=== PATIENT | female | born 1940 | race Caucasian/White ===

== ENCOUNTER 2021-07-23 11:09 | Day surgery (SDCO) | payer MEDICARE ==
[~2021-07-23] VITALS: Ht 170.2 cm; Wt 55.8 kg
[~2021-07-23 11:09] MED LIST: ADULT ASPIRIN R81 MG PO; BENAZEPRIL HCL20 MG PO; CARAFATE1 G1 PO; CLOPIDOGREL75 MG PO; HYDRALAZINE 10M10 MG PO; HYDRALAZINE HCL25 MG PO; LIPITOR40 MG PO; LOPRESSOR50 MG PO; METFORMIN HCL500 MG PO; METOPROLOL TART50 MG PO; NORVASC5 MG PO; PLAVIX75 MG PO; PRILOSEC20 MG PO; SINGULAIR10 MG PO; ZESTRIL5 MG PO
[2021-07-23 11:51] LABS: BASOPHIL 0.4 % (0-2); EOSINOPHIL 11.7 % (0-7); HCT 39.2 % (37.0-47.0); HGB 12.3 g/dl (12.5-16.0); LYMPHOCYTE 8.2 % (15-48); MCH 27.3 pg (25.0-31.0); MCHC 31.4 g/dL (32.0-36.0); MCV 87.1 fL (78.0-100.0); MONOCYTE 8.8 % (0-12); MPV 11.4 fL (6.0-9.5); NEUTROPHIL 70.5 % (41-80); NRBC 0; PLT 378 K/uL (150-400); RDW 13.4 % (11.5-14.0); WBC 12.8 K/uL (4.0-10.5)
[2021-07-23 11:52] LABS: BILIRUBIN NEGATIVE (NEGATIVE); BLOOD NEGATIVE Ery/uL (NEGATIVE); CLARITY CLEAR (CLEAR); COLOR YELLOW (YELLOW); GLUCOSE (U) NORMAL (NORMAL); LEUKOCYTES TRACE Leu/uL (NEGATIVE); NITRITE NEGATIVE (NEGATIVE); PROTEIN 2+ mg/dL (NEGATIVE); SPECIFIC GRAVITY 1.025 (1.001-1.030); UROBILINOGEN 0.2 mg/dL (0.2-1.0)
[2021-07-23 12:02] LABS: ALBUMIN 3.5 g/dL (3.4-5.0); BILIRUBIN - TOTAL 0.7 mg/dL (0.2-1.0); BUN/CREAT RATIO (CALC) 18.8 RATIO; CREATININE 0.96 mg/dL (0.51-0.95); GLOBULIN (CALCULATION) 4.4 g/dL; POTASSIUM 3.7 mmol/L (3.5-5.1); TOTAL PROTEIN 7.9 g/dL (6.4-8.2)
[2021-07-23 12:20] LABS: BACTERIA TRACE
[2021-07-23 13:28] LABS: CORONAVIRUS 2019 SARS-COV-2 NEGATIVE (NEGATIVE); INFLUENZA A NAA NEGATIVE (NEGATIVE)
[2021-07-23 13:30] LABS: LACTIC ACID 0.9 mmol/L (0.4-1.9)
[2021-07-23] MEDS ORDERED: ASPIRIN EC81 MG PO (16:41)
[2021-07-23] MEDS ORDERED: CALTRATE 600 +1 EAC1 PO (16:41)
[2021-07-23] MEDS ORDERED: PLAVIX75 MG PO (16:42)
[2021-07-23] MEDS ORDERED: METFORMIN HCL500 MG PO (16:43)
[2021-07-23] MEDS ORDERED: ONE-DAILY MULT1 EACH PO (16:44)
[2021-07-24 07:21] LABS: BASOPHIL 0.7 % (0-2); EOSINOPHIL 19.9 % (0-7); HCT 31.6 % (37.0-47.0); LYMPHOCYTE 18.2 % (15-48); MCH 27.2 pg (25.0-31.0); MCHC 31.6 g/dL (32.0-36.0); MCV 86.1 fL (78.0-100.0); MONOCYTE 9.8 % (0-12); MPV 11.9 fL (6.0-9.5); NEUTROPHIL 51.1 % (41-80); NRBC 0; PLT 280 K/uL (150-400); RBC 3.67 M/uL (4.20-5.40); RDW 13.4 % (11.5-14.0); WBC 8.9 K/uL (4.0-10.5)
[2021-07-24 07:40] LABS: ALBUMIN 2.6 g/dL (3.4-5.0); BILIRUBIN - TOTAL 0.7 mg/dL (0.2-1.0); BUN/CREAT RATIO (CALC) 15.6 RATIO; C-REACTIVE PROTEIN 5.1 mg/dL (<=0.90); CREATININE 0.9 mg/dL (0.51-0.95); GLOBULIN (CALCULATION) 3.4 g/dL; MAGNESIUM 1.2 mg/dL (1.8-2.4); POTASSIUM 3.3 mmol/L (3.5-5.1)
--- NOTE | 2021-07-24 12:24 | NUR ---
SPOKE WITH DR. CHAIREZ REGARDING PT OBS STATUS. HE FEELS THAT SHE MAY D/C ON 07/25/21 AND WILL LEAVE HER OBS.
[2021-07-25 06:37] LABS: BASOPHIL 0.6 % (0-2); EOSINOPHIL 18.6 % (0-7); HCT 32.9 % (37.0-47.0); HGB 10.4 g/dl (12.5-16.0); LYMPHOCYTE 16.8 % (15-48); MCH 26.9 pg (25.0-31.0); MCHC 31.6 g/dL (32.0-36.0); MCV 85.2 fL (78.0-100.0); MONOCYTE 11.1 % (0-12); NEUTROPHIL 52.5 % (41-80); NRBC 0; PLT 300 K/uL (150-400); RBC 3.86 M/uL (4.20-5.40); RDW 13.4 % (11.5-14.0); WBC 8.6 K/uL (4.0-10.5)
[2021-07-25 07:00] LABS: BUN/CREAT RATIO (CALC) 9.9 RATIO; C-REACTIVE PROTEIN 3.2 mg/dL (<=0.90); CREATININE 0.91 mg/dL (0.51-0.95); PHOSPHORUS 2.8 mg/dL (2.6-4.7); POTASSIUM 3.3 mmol/L (3.5-5.1)
[2021-07-25] MEDS ORDERED: PRINIVIL10 MG PO (17:56)
[2021-07-25] MEDS ORDERED: HYDRALAZINE HCL25 MG PO (17:56)
[2021-07-25] MEDS ORDERED: AMOX TR-K CLV1 EAC4 PO (18:30)
== END 2021-07-25 19:14 | disposition home or self-care (01) ==
LOC: FER 11:09 → FMS 14:14
PROVIDERS: Emergency Medicine; Nurse Practitioner Family; ADMIT Internal Medicine
DX: K57.32 Diverticulitis of large intestine without perforation or abscess without bleeding (principal); K55.1 Chronic vascular disorders of intestine; K21.9 Gastro-esophageal reflux disease without esophagitis; I10 Essential (primary) hypertension; I25.10 Atherosclerotic heart disease of native coronary artery without angina pectoris; E11.51 Type 2 diabetes mellitus with diabetic peripheral angiopathy without gangrene; N30.00 Acute cystitis without hematuria; E83.42 Hypomagnesemia; E87.6 Hypokalemia; E78.5 Hyperlipidemia, unspecified; R82.81 Pyuria; Z79.82 Long term (current) use of aspirin; Z79.02 Long term (current) use of antithrombotics/antiplatelets; Z79.84 Long term (current) use of oral hypoglycemic drugs; Z79.899 Other long term (current) drug therapy; Z20.822 Contact with and (suspected) exposure to COVID-19
CPT/HCPCS: 36415; 80048; 80053; 81001; 82150; 82962; 83036; 83605; 83690; 83735; 83880; 84100; 84145; 85025; 86140; 87088; C9113; G0378; J2543; J3475; J7030; J7120; Q9967; U0002

== ENCOUNTER 2021-08-25 17:51 | Emergency (ER) | payer MEDICARE ==
[~2021-08-25 17:51] MED LIST changes: +AMOX TR-K CLV1 EAC4 PO; +ASPIRIN EC81 MG PO; +CALTRATE 600 +1 EAC1 PO; +ONE-DAILY MULT1 EACH PO; +PRINIVIL10 MG PO
[2021-08-25 18:54] LABS: BASOPHIL 0.7 % (0-2); EOSINOPHIL 14.6 % (0-7); HCT 37.3 % (37.0-47.0); LYMPHOCYTE 15.1 % (15-48); MCH 27.3 pg (25.0-31.0); MCHC 32.2 g/dL (32.0-36.0); MCV 84.8 fL (78.0-100.0); MONOCYTE 8.9 % (0-12); MPV 11.4 fL (6.0-9.5); NEUTROPHIL 60.3 % (41-80); NRBC 0; PLT 371 K/uL (150-400); RDW 13.9 % (11.5-14.0); WBC 10.4 K/uL (4.0-10.5)
[2021-08-25 19:11] LABS: ALBUMIN 3.7 g/dL (3.4-5.0); BILIRUBIN - TOTAL 0.4 mg/dL (0.2-1.0); BUN/CREAT RATIO (CALC) 16.5 RATIO; CREATININE 1.03 mg/dL (0.51-0.95); GLOBULIN (CALCULATION) 4.5 g/dL; POTASSIUM 4.3 mmol/L (3.5-5.1); TOTAL PROTEIN 8.2 g/dL (6.4-8.2)
[2021-08-25] MEDS ORDERED: ONDANSETRON ODT4 MG PO (21:25)
[2021-08-25] MEDS ORDERED: PROTONIX 40MG T40 MG PO (21:25)
== END 2021-08-25 21:59 | disposition home or self-care (01) ==
LOC: FER 17:51
PROVIDERS: Emergency Medicine
DX: R10.13 Epigastric pain (principal); R11.2 Nausea with vomiting, unspecified; I25.2 Old myocardial infarction; I10 Essential (primary) hypertension; Z95.5 Presence of coronary angioplasty implant and graft; Z95.1 Presence of aortocoronary bypass graft; Z79.82 Long term (current) use of aspirin; Z79.02 Long term (current) use of antithrombotics/antiplatelets
CPT/HCPCS: 36415; 80053; 83690; 84484; 85025; 93005

== ENCOUNTER → 2021-12-26 | Day surgery (SDC) | payer MEDICARE ==
[~2021-12-26] VITALS: Ht 170.2 cm; Wt 55.8 kg
[~2021-12-26] MED LIST changes: +ONDANSETRON ODT4 MG PO; +PROTONIX 40MG T40 MG PO
== END | disposition home or self-care (01) ==
LOC: FAS 10:54
DX: K31.9 Disease of stomach and duodenum, unspecified (principal); K44.9 Diaphragmatic hernia without obstruction or gangrene; I73.9 Peripheral vascular disease, unspecified; E11.9 Type 2 diabetes mellitus without complications; E78.00 Pure hypercholesterolemia, unspecified; I10 Essential (primary) hypertension; I25.2 Old myocardial infarction; Z79.02 Long term (current) use of antithrombotics/antiplatelets; Z90.49 Acquired absence of other specified parts of digestive tract; Z95.1 Presence of aortocoronary bypass graft
CPT/HCPCS: J2704; J7120